=== PATIENT | male | born 1985 | race Caucasian/White ===

== ENCOUNTER 2022-12-09 11:25 | Emergency (ER) | payer SELFPAY ==
[~2022-12-09] VITALS: Ht 185.4 cm; Wt 127.0 kg
--- NOTE | 2022-12-09 11:54 | NUR ---
PT NOT IN WAITING ROOM BUT APPARENTLY TOLD SECURITY THAT HE WILL BE BACK.
--- NOTE | 2022-12-09 12:26 | NUR ---
Patient taken for CT scan.
[2022-12-09] MEDS ORDERED: NAPR-1009 PO (13:41)
[2022-12-09] MEDS ORDERED: METH4TAB3 PO (13:41)
--- NOTE | 2022-12-09 13:50 | NUR ---
Patient discharged to home in stable condition. Written and verbal after care instructions given. Patient verbalizes understanding of instructions. Stressed follow up or return to ER for worsening s/s.
[2022-12-09 13:52] VITALS: BP 135/89
== END 2022-12-09 13:53 | disposition home or self-care (01) ==
LOC: ER 11:25
DX: M51.16 Intervertebral disc disorders with radiculopathy, lumbar region (principal); M21.371 Foot drop, right foot; M48.061 Spinal stenosis, lumbar region without neurogenic claudication; J45.909 Unspecified asthma, uncomplicated; F17.200 Nicotine dependence, unspecified, uncomplicated
CPT/HCPCS: 72131; A4663